=== PATIENT | female | born 1965 | race Caucasian/White ===

== ENCOUNTER 2019-01-17 18:38 | Inpatient (IN) ==
[2019-01-17] MEDS ORDERED: ATIVAN IV ONE (19:16)
[2019-01-17 19:19] LABS: ALLEN TEST YES; BE -21.5 mmoll (-3.0-3.0); BLOOD TYPE ARTERIAL; HCO3-(ACT) 8.2 mmoll (20.0-26.0); O2(CT) 13.1 mL/dL (15.0-23.0); O2HB 97.6 % (95.0-99.0); PO2(98.6) 145 mmHg (60-100); SAMPLE BLOOD; SAO2 100.2 % (95.0-100.0); THB 9.3 g/dL (11.5-17.4); pH(98.6) 7.24 (7.35-7.45)
[2019-01-17 19:22] LABS: LACTATE > 20.00 mmoll (0.44-2.22); MODALITY ROOM AIR; PCO2(98.6) 8 mmHg (35-45)
[2019-01-17] MEDS ORDERED: NARCAN IV ONE (19:26)
[2019-01-17] MEDS ORDERED: NS 1,000 ML IV ONE ×4 (19:26→20:31)
--- NOTE | 2019-01-17 19:28 | Diag Imaging Result Doc PS360 ---
EXAM: CHEST-PORTABLE - 01/17/2019 HISTORY: altered mental status TECHNIQUE: Portable chest COMPARISON: 07/12/2018 FINDINGS: Heart size is normal. The lungs appear essentially clear. There is no pleural effusion or pneumothorax identified. IMPRESSION: No evidence of acute disease. Electronically signed by Dar Mays 01/17/2019 7:25 PM
[2019-01-17 19:33] LABS: BASO# 0.03 X1000 (0.0-0.2); BASO% 0.1 % (0.0-0.8); EOS# 0.01 X1000 (0.0-0.7); HEMATOCRIT 30.9 % (37.0-47.0); HEMOGLOBIN 9.6 g/dL (12.0-16.0); IMM GRAN# 0.12 X1000 (0.0-0.04); IMM GRAN% 0.4 % (0.0-0.5); LYMPH# 2.08 X1000 (1.2-3.4); LYMPH% 6.1 % (20.5-51.1); MCH 33.7 PG (27-31); MCHC 31.1 g/dL (33-37); MCV 108.4 FL (81-99); MONO# 1.86 X1000 (0.11-0.59); MONO% 5.5 % (1.7-9.3); MPV 10.8 FL (7.4-10.4); NEUT# 29.78 X1000 (1.4-6.5); NEUT% 87.9 % (42.2-75.2); PLT 65 X1000 (130-400); RBC 2.85 XMIL (4.2-5.4); RDW 16.1 % (11.5-14.5); WBC 33.88 X1000 (4.8-10.8)
[2019-01-17 19:35] LABS: INR 3.23; PROTIME 35.2 Seconds (11.0-16.0)
[2019-01-17 19:36] LABS: PTT 44.1 Seconds (22.3-41.8)
[2019-01-17 19:47] LABS: BANDS 8 % (0-1); LYMPHS 5 % (21-51); MONO 2 % (1-9); SEGS 85 % (42-75)
[2019-01-17 19:48] LABS: ANISOCYTOSIS 1+
[2019-01-17 19:53] LABS: ALBUMIN 3.4 g/dL (3.5-5.0); CALCIUM 9.1 mg/dL (8.8-10.2); TOTAL BILIRUBIN 4.53 mg/dL (0.20-1.00); TOTAL PROTEIN 6.7 g/dL (6.3-8.3)
[2019-01-17] MEDS ORDERED: NORCURON ONE (19:53)
[2019-01-17] MEDS ORDERED: AMIDATE ONE (19:53)
[2019-01-17] MEDS ORDERED: NORCURON IV ONE (19:54)
[2019-01-17] MEDS ORDERED: AMIDATE IV ONE (19:54)
[2019-01-17] MEDS ORDERED: STERILE WATER INJ. ONE (19:54)
[2019-01-17 20:06] LABS: URINE SOURCE CATH
[2019-01-17 20:08] LABS: CK-MB 44.97 ng/mL (0.0-5.0)
[2019-01-17 20:31] LABS: UR AMPHETAMINES QUAL NONE DETECTED (NONE DETECT); UR BARBITUATES QUAL NONE DETECTED (NONE DETECT); UR BENZODIAZEPIN QUAL NONE DETECTED (NONE DETECT); UR CANNABINOIDS QUAL NONE DETECTED (NONE DETECT); UR COCAINE QUAL NONE DETECTED (NONE DETECT); UR METHADONE QUAL NONE DETECTED (NONE DETECT); UR OPIATES QUAL PRESUMPTIVE POSITIVE (NONE DETECT); UR OXYCODONE QUAL NONE DETECTED (NONE DETECT); UR PCP QUAL NONE DETECTED (NONE DETECT)
[2019-01-17 20:33] LABS: BILIRUBIN URINE NEGATIVE (NEGATIVE); BLOOD URINE TRACE (NEGATIVE); COLOR YELLOW; GLUCOSE URINE NEGATIVE (NEGATIVE); KETONE URINE 40 mg/dL (NEGATIVE); LEUKOCYTES URINE LARGE (NEGATIVE); NITRITE URINE NEGATIVE (NEGATIVE); PH URINE 5.5; PROTEIN URINE TRACE mg/dL (NEGATIVE); SP GRAVITY URINE 1.007; TURBIDITY URINE HAZY (CLEAR); UROBILINOGEN URINE NORMAL (NORMAL)
[2019-01-17] MEDS ORDERED: POTASSIUM CHLORIDE 10 MEQ/SWI 10 MEQ/100 ML IVPB IV ONE (20:34)
[2019-01-17 20:35] LABS: UR EPITHELIAL CELLS <10 /HPF (<10); URINE BACTERIA 4+ /HPF; URINE RBC <10 /HPF (<10); URINE WBC TNTC /HPF (<10)
[2019-01-17] MEDS: FENTANYL 1,000 MICROGM in NS 80 ML IV SCH (20:38)
[2019-01-17 20:46] LABS: ACETAMINOPHEN < 1.2 ug/mL (10-30); SALICYLATES < 3.00 mg/dL (3-10)
[2019-01-17] MEDS ORDERED: SODIUM BICARBONATE 8.4% 100 MEQ in D5W 1,000 ML IV SCH (21:00)
[2019-01-17] MEDS ORDERED: SODIUM BICARBONATE 8.4% 50 MEQ in D5W 1,000 ML IV SCH (21:00)
--- NOTE | 2019-01-17 21:01 | Diag Imaging Result Doc PS360 ---
EXAM: CHEST-PORTABLE - 01/17/2019 HISTORY: Post intubation TECHNIQUE: Portable AP spine chest COMPARISON: Prior exam of 01/17/2019 FINDINGS: There has been interval insertion of an endotracheal tube, with its tip 3.8 cm above the franchesca. There has been interval insertion of a nasogastric tube, its tip at expected location of the proximal stomach near the gastroesophageal junction. There is apparent infiltrate at the superior lateral left upper lobe, although this could be exaggerated by scapular overlap. There are no other interval changes identified. IMPRESSION: Satisfactory position of endotracheal tube, with its tip located 3.8 cm above the franchesca. Tip of nasogastric tube in proximal stomach. The nasogastric tube probably should be advanced several centimeters for more optimal positioning. Apparent infiltrate at superior lateral left upper lobe. Electronically signed by Dar Mays 01/17/2019 8:58 PM
[2019-01-17] MEDS ORDERED: VANCOMYCIN 1 GM/NS 1 GM/250 ML IVPB IV ONE (21:07)
[2019-01-17 21:28] LABS: ALLEN TEST YES; BE -23.3 mmoll (-3.0-3.0); BLOOD TYPE ARTERIAL; HCO3-(ACT) 6.8 mmoll (20.0-26.0); METHB 1.2 % (0.0-1.5); O2(CT) 10.9 mL/dL (15.0-23.0); O2HB 98.2 % (95.0-99.0); PCO2(98.6) 22 mmHg (35-45); PO2(98.6) 289 mmHg (60-100); SAMPLE BLOOD; SRATE 12 BPM; THB 7.3 g/dL (11.5-17.4); TVOL 550 mL
[2019-01-17 21:31] LABS: LACTATE > 20.00 mmoll (0.44-2.22); MODALITY VENTILATOR; pH(98.6) 7.02 (7.35-7.45)
[2019-01-17] MEDS ORDERED: SODIUM BICARBONATE 8.4% IV PUSH ONE (21:35)
--- NOTE | 2019-01-17 21:54 | Diag Imaging Result Doc PS360 ---
EXAM: CT HEAD W/O CONTRAST - 01/17/2019 HISTORY: AMS TECHNIQUE: CT head without contrast COMPARISON: 07/12/2018 FINDINGS: There is no evidence of intracranial hemorrhage, mass effect, midline shift, or hydrocephalus. There is no evidence of infarct, although acute infarcts may not be immediately visible. There is no evidence of skull fracture. There is mild paranasal sinus disease noted, including opacification of the left compartment sphenoid sinus. IMPRESSION: No visible acute intracranial abnormality. No hemorrhage or mass effect. There is mild paranasal sinus disease noted. This exam was performed using automated exposure control, adjustment of mA or kV according to patient size, and/or use of iterative reconstruction technique. Electronically signed by Dar Mays 01/17/2019 9:51 PM
--- NOTE | 2019-01-17 22:07 | Diag Imaging Result Doc PS360 ---
EXAM: CT ABDOMEN/PELVIS W/O CONTRAST - 01/17/2019 HISTORY: lactic acidosis TECHNIQUE: CT abdomen/pelvis without contrast. No contrast administered per request of the referring provider. COMPARISON: 12/01/2012 CT abdomen/pelvis with contrast FINDINGS: There is some limitation of detail due to the lack of administered contrast. The liver is is relatively small, has lobulated contours, and has heterogeneous attenuation diffusely. These findings have developed since the previous exam and are suspicious for chronic hepatocellular disease/cirrhosis. The spleen is normal size. There is no pancreatic mass or inflammation identified. The gallbladder is mildly distended. There are no calcified gallstones or pericholecystic inflammation identified. There is no renal stone or hydronephrosis identified. There are some mildly prominent retroperitoneal lymph nodes. There is a nasogastric tube with its tip in the proximal stomach. The stomach is moderately distended with fluid, and there is possibly thickening of the gastric mcmullen. There is no evidence of small bowel obstruction. There is some haziness of the mesentery, and there is possibly some mild small bowel wall thickening, which may relate to enteritis. There is some dense material in the colon lumen which may represent oral contrast or some sort of medication residue. There is wall thickening along portions of colon which is suspicious for colitis. The rectum is mildly distended with debris. There is no pneumatosis identified. There is no abscess identified. There is no free air or substantial free fluid identified. IMPRESSION: The stomach is moderately distended with fluid, and there is possible thickening of the gastric mcmullen. This is suspicious for gastritis. Apparent relatively generalized enterocolitis. Possible rectal fecal impaction. No evidence of abscess. No free air. Apparent chronic hepatocellular disease/cirrhosis, which has developed since the prior exam. Mildly prominent retroperitoneal lymph nodes. This exam was performed using automated exposure control, adjustment of mA or kV according to patient size, and/or use of iterative reconstruction technique. Electronically signed by Dar Mays 01/17/2019 10:05 PM
--- NOTE | 2019-01-17 22:08 | NEPHROLOGY CONSULTATION ---
DATE: 01/17/2019 REASON FOR CONSULTATION: Lactic acidosis. HISTORY OF PRESENT ILLNESS: Ms. Marcial is a 53-year-old, white female who was brought to the emergency room by EMS. The report is that she was found down and unresponsive. There is no family present. I contacted the emergency contact, named Michelle Marcial, but she states that she has had no contact with the patient stating that she has been "cut off." She does state the patient has an alcohol and drug problem. Her initial evaluation found her tachycardic with a blood pressure 108/59, and tachypnea, Kussmaul breathing. She was unresponsive. She was treated with IV fluids, intubation, etc. Her laboratory data noted markedly elevated serum lactic acid level with other findings including elevated transaminases. Creatinine of 2, potassium of 2, white blood cell count of 34,000 and thrombocytopenia. I was contacted with concern for possible ingestion and possible need for hemodialysis. PAST MEDICAL HISTORY: Unknown. HOME MEDICATIONS, SOCIAL, FAMILY: Otherwise unknown. ALLERGIES: She does have allergies listed in the chart of codeine, etodolac and naproxen. PHYSICAL EXAMINATION: Vital Signs: Blood pressure 94/68, heart rate 92, O2 saturation 100%. General: She is an ill-appearing woman, sedated, unresponsive. Skin: Pale and dry with mottling on the knees and faint mottling on the distal extremities. Skin is otherwise no bruising. HEENT: Conjunctivae are pink. Pupils are dilated but reactive. Oropharynx is dry. Poor dentition. Neck: Supple. Neck vein distention is not appreciated. Heart: PMI is hyperdynamic. Auscultation demonstrates a regular rhythm with no gallops or murmurs. Lungs: Have equal breath sounds. No crackles or wheezes. Abdomen: Soft, mildly protuberant, nontender. The aorta is somewhat pulsatile, but I do not believe it is enlarged. No bruits. Bowel sounds are not appreciated. No organomegaly is palpable. Extremities: Have no edema, clubbing, or cyanosis. Proximal pulses are palpable. Radial pulses thready and dorsalis pedis and posterior tibial pulses are not palpable. Neurologic: Grossly nonfocal. IMPRESSION: Lactic acidosis with respiratory compensation. Her pH is falling. PLAN: We will give 2 amps of sodium bicarbonate and again a bicarbonate drip. Blood cultures, Zosyn, vancomycin. CT of the abdomen. Her osmolal gap is modestly elevated at 30, but given her marked lactic acidosis, this is an adequate explanation for this finding without invoking other ingestions. Urine output is actually good despite her hypotension. Continue volume resuscitation and re-evaluate her labs serially. We will discuss with the primary team. cc: Lefty Ceballos MD
--- NOTE | 2019-01-17 22:43 | PROVIDER DOCUMENTATION ---
This chart was entered by Unruly vIerson Scribe, acting as scribe for Ulices Lehman MD. HPI-General Adult - General Chief Complaint: Altered Mental Status Stated Complaint: AMS Time Seen by Provider: 01/17/19 19:08 Source: EMS Unable to obtain history due to:: altered Allergies/Adverse Reactions: Patient Allergies Allergy/AdvReac Type Severity Reaction Status Date / Time codeine Allergy NAUSEA/VOMI Verified 03/20/18 07:49 TING etodolac [From Lodine] Allergy NAUSEA Verified 03/20/18 07:49 naproxen [From Naprosyn] Allergy NAUSEA Verified 03/20/18 07:49 Home Medications: Home Medication List Medication Instructions Recorded Confirmed Last Taken Type Tizanidine [Zanaflex] 4 mg PO 4XDAY 09/01/14 07/12/18 07/11/18 History 4mg Hydrocodone/Acetaminophen [[place] 1 tab PO Q4-6H PRN PRN 03/12/15 07/12/18 History 10-325 Tablet] 1 Diphenhydramine HCl [Benadryl 25 mg PO DAILY PRN PRN 03/28/18 07/12/18 07/12/18 History Allergy] 25mg Clonazepam [Klonopin] 1 mg PO BID #0 07/13/18 07/12/18 07/11/18 Rx 1mg Folic Acid 1 mg PO DAILY tablet 07/13/18 Unknown Rx Metoprolol [Lopressor] 50 mg PO BID #60 tab 07/13/18 Unknown Rx - History of Present Illness -Gen Adult Nature of Presenting Problems: Pt is a 53 y/o F brought in by EMS with AMS> EMS reports the room mate last saw pt normal 32 hours ago. EMS reports unconfirmed hx of CVA's and old records show a history of daily drinking. Review of Systems - Adult - REVIEW OF SYSTEMS - ADULT ROS:: unobtainable per condition Constitutional: denies: chills, fever Past History - Adult - PAST MEDICAL HISTORY-ADULT Review of Records: reports: Old Records Reviewed, Nursing Assessment Review, Medications Reviewed Major Childhood Illnesses: reports: denies history Cardiovascular: reports: CAD, HTN, [place] Respiratory: reports: denies history Gastrointestinal: reports: denies history Obstetrical/Gynecological: reports: denies history Genitourinary: reports: denies history Musculoskeletal: reports: other (Back and spine issues/ chronic back pain) Neurological: reports: CVA Endocrine/Immune: reports: denies history Other Conditions: reports: other (DDD) - PRIOR SURGERIES/PROCEDURES Surgical/Procedure History: reports: hysterectomy, other, back/neck - IMMUNIZATION STATUS Childhood Immunizations: UTD Flu Vaccine: See Nurse Assessment - FAMILY HISTORY Family History: reviewed, not pertinent - SOCIAL HISTORY Smoking: cigarettes Substance Use: alcohol Alcohol Use Frequency: every day Living Situation: friend Physical Exam-General - PHYSICAL EXAM-ADULT Initial Vital Signs Reviewed: Yes - CONSTITUTIONAL General Appearance: alert. negative: appears well (ill in appearance), other ( Pt is non verbal and breathing with her mouth open. She will not answer questions and tries to pull away when check pupils) - EYES Eyes: PERRL/EOMI, pink conjunctivae - HEAD, EARS, NOSE, MOUTH & THROAT HENMT: negative: moist mucous membranes (dry with dried blood.), normal ENT inspection (mouth is full of rotten teeth) - NECK Neck: full range of motion, normal inspection - RESPIRATORY Respiratory: no pleuratic chest pain, no respiratory distress, no accessory muscle use, increased rate - CARDIOVASCULAR Cardiovascular: normal peripheral pulses, tachycardia - GASTROINTESTINAL (ABDOMEN) Abdominal Exam: non tender, soft - MUSCULOSKELETAL Extremity: normal range of motion, normal inspection - SKIN Integumentary: normal color, normal turgor, warm/dry - NEUROLOGIC Neurologic: aphasia. negative: facial droop - PSYCHIATRIC Psych/Mental Status: negative: normal mood/affect, normal thought content, normal thought process, oriented x 3 Progress - PLAN OF CARE/RESULTS Progress/Plan/Lab Results: Vital Signs - 8 hr 01/17/19 18:42 Temperature 97.5 F L Pulse Rate 104 H Respiratory Rate 30 H Blood Pressure 108/59 O2 Sat by Pulse Oximetry 100 Laboratory Results - last 24 hr 01/17/19 18:48 POC Glucose 118 H Orders Category Date Time Status Cardiac Monitoring DIRECTED Care 01/17/19 19:03 Active Finger Stick Blood Sugar (ED) DIRECTED Care 01/17/19 19:03 Active [place] Cath Insertion ORDERED Care 01/17/19 19:16 Active Saline Loc NOW Care 01/17/19 19:03 Active CHEST-PORTABLE [RAD] Stat Exams 01/17/19 19:[address] HEAD W/O CONTRAST [CT] Stat Exams 01/17/19 19:12 Ordered ABG [RESP] Routine Lab 01/17/19 19:03 Ordered CBC WITH ELECTRONIC DIFF [HEME] Stat Lab 01/17/19 19:09 Ordered CK PROFILE [SP CHEM] Stat Lab 01/17/19 19:09 Ordered COMPREHENSIVE METABOLIC PANEL [CHEM] Stat Lab 01/17/19 19:09 Ordered LACTATE, PLASMA [CHEM] Stat Lab 01/17/19 19:09 Ordered PROTIME WITH INR [COAG] Stat Lab 01/17/19 19:09 Ordered PTT [COAG] Stat Lab 01/17/19 19:09 Ordered TROPONIN T Stat Lab 01/17/19 19:09 Ordered Lorazepam [Ativan] Med 01/17/19 19:16 Discontinued 2 mg IV NOW ONE Altered Mental Status Stat Oth 01/17/19 19:02 Ordered EKG [EKG] Stat Ther 01/17/19 19:[address] Lehman consults hospitalist Dr Berger as an game preserve manager to help with the plan of care and possible causes of elevated labs especially lactic acid > 20. Did alert him that she will need to come in. Result Diagrams: 01/17/19 18:50 01/17/19 18:50 - REASSESSMENT Reassessment #1 Time Reassessed: 19:40 Status: worsening (Pt getting more restless and becoming more unresponsive) Reassessment #2 Time Reassessed: 21:41 Status: unchanged (Pt remians hypotenisve after 3 Liters of fluid. Central line needed for pressure support) - XRAY 1 XRAY Study: Chest Impression: Normal (Tube placement is good), See EMR Report - CONSULTS/PCP/HOSPITALIST Notification #1 *Consult/PCP/Hospitalist*: Seat Cover Maker- Dr Rothman Time Discussed: 20:22 Reason/Comments: Review of HPI and plan of care for possible dialysis Consult Disposition: other #2 Consult: Hospitalist- Dr Berger Time Discussed: 22:23 Reason/Comments: admission Consult Disposition: Admit (accepts) Procedures - CENTRAL LINE Consent Form Signed?: No (Emergent, pt intubated) Time-Out Verification Completed?: Yes Central Line Lumen: triple Central Line Procedure Prep: Hand Hygeine Performed, Kit Utilized, Chloraprep, Sterile Body Drape Placed Patient Position (To prevent Air Embolism): Trendelenburg (SC/IJ) Central Line Position: internal jugular (R) Ultrasound Guided?: Yes Hat, mask, sterile gown, & sterile gloves worn by physician?: Yes Site scrubbed vigorously for 30 seconds? (Groin: 2 min): Yes Post Procedure: Sutured in place, Sterile field maintained, BioPatch placed, Sterile dressing applied, Blood aspirated from each lumen, Placement verfied by XRAY Complications: none - INTUBATION Time of Intubation: 19:58 Intubation Method: orotracheal Equipment: ETT Tube Size (cm): 7.5 Pretreated with 100% Oxygen?: Yes Breath Sounds after Intubation: equal ETT Primary Tube Confirmation: Capnometry CO2 Change, Chest Rise and Fall Intubation Complications: no complications Vent Settings: See Respiratory Therapy Notes - PROCEDURAL SEDATION Consent Form Signed?: No (Pt altered and emgergent) Prior complications to general anesthesia?: No Airway Physical Exam: normal anatomy Plan explained to:: other (Emergent intubation) Sedation: etomidate, other (Vec) Complications during/after procedure?: none Departure - Departure Date of Disposition Decision: 01/17/19 Time of Disposition Decision: 22:42 DIAGNOSIS: Lactic acid acidosis Altered mental status Qualifiers: Altered mental status type: disorientation Qualified Code(s): R41.0 - Disorientation, unspecified Disposition: ADMITTED INPATIENT 09 Certified Medical Emergency: Emergent Condition: Critical Referrals and Follow-Ups: None,PCP [NON-STAFF PROVIDER] - - Critical Care Note This patient required my direct & personal management of CC.: Yes Attestation - Physician/ XAVIER Attestation Patient care was provided by Advanced Practice Provider:: No The physician spent face to face time with patient:: Yes Advanced Practice Provider documentation review:: Supervising physician onsite and consulted in the evaluation and care of this patient. The physician did have a face to face encounter with the patient. This chart was documented by the indicated scribe, (Unruly Iverson Scribe) and accurately reflects the services I performed and decisions made by me, Ulices Lehman MD, as attested by the provider's signature.
[2019-01-17] MEDS: SODIUM BICARBONATE 8.4% 100 MEQ in D5W 1,000 ML IV SCH (22:48)
[2019-01-17] MEDS ORDERED: POTASSIUM CHLORIDE 40 MEQ/SWI 40 MEQ/100 ML IVPB IV ONE (23:01)
[2019-01-17] MEDS ORDERED: ZOFRAN IV PRN (23:02)
[2019-01-17] MEDS ORDERED: VITAMIN K 10 MG in NS 50 ML IV ONE (23:08)
[2019-01-17] MEDS: LEVOPHED 8 MG in D5 1/2 NS 250 ML IV SCH (23:45)
[2019-01-17] MEDS: POTASSIUM CHLORIDE 20 MEQ/SWI 20 MEQ/100 ML IVPB IV SCH (23:45)
--- NOTE | 2019-01-18 00:54 | HISTORY AND PHYSICAL ---
PRIMARY CARE PROVIDER: Patel Mensah. CHIEF COMPLAINT: Unresponsive. HISTORY OF PRESENT ILLNESS: Ms. Marcial is a 53-year-old female who was brought into the emergency room by EMS. She was reportedly found down unresponsive. On arrival to the emergency room, apparently she was close to obtunded but still did move some per the ER staff. There was no family present. She has a past history of alcohol and drug problems from previous charting. Also has a history of hepatitis C, CVA, coronary artery disease, asthma, seasonal allergies, and allergic rhinitis and hypertension. Initial laboratory data was obtained. She was found to be in pretty severe lactic acidosis. She was started in the emergency room on a bicarbonate drip and Dr. Ceballos was consulted. The patient was in respiratory failure and intubated. Her toxicology screen was presumptively positive for opiates. All initial CT scan such as of her head did not show any bleed. Abdomen and pelvis showed possible gastritis. She was also noted to have a urinary tract infection and a white blood cell count of 33.88. She will be admitted and placed in the ICU for further evaluation and treatment. PAST MEDICAL HISTORY: See HPI. PREVIOUS SURGICAL HISTORY: Hysterectomy, exploratory laparotomy for lysis of adhesions, ORIF of the right elbow. FAMILY HISTORY: Could not be obtained. SOCIAL HISTORY: Could not be obtained but from past medical history smokes a pack a day, drinks a 6-pack a day and a pint of liquor every so often. No illicit drugs. I believe she lives with a friend. ALLERGIES: Codeine, and naproxen. HOME MEDICATIONS: A list of home medications has not been reconciled. An order was placed for Nursing to reconcile home medications. REVIEW OF SYSTEMS: This could not be obtained. PHYSICAL EXAMINATION: VITAL SIGNS: Temperature 97.5, pulse 81, blood pressure 82//56, oxygen saturation 98% on 100% mechanical ventilation. GENERAL: Unfortunate 53-year-old female intubated, unresponsive, chronically ill appearing lying in the ER stretcher, does not respond to any stimulants. HEENT: Head is atraumatic, normocephalic. Pupils are dilated right slightly larger than left. They are reactive. Extraocular eye movement could not be tested. Oral mucosa is dry. Poor dentition noted. NECK: Supple. No JVD. No thyromegaly. Trachea is midline. CARDIAC: S1, S2 appreciated. No murmurs, gallops, rubs. LUNGS: Mechanically ventilated. Clear to auscultation. No rhonchi, wheezes, rales. ABDOMEN: Protuberant, soft, nondistended. Bowel sounds present all 4 quadrants , hypoactive, almost unappreciable. No organomegaly. EXTREMITIES: No clubbing, cyanosis, or edema. Cool to touch. One-plus pedal pulses. Radial pulses are thready. NEUROLOGICAL: Intubated and sedated. Cannot be examined. DIAGNOSTIC DATA: A CT of the abdomen and pelvis was suspicious for gastritis, generalized enterocolitis, possible fecal impaction, cirrhosis. CT of the head: No acute intracranial process. Chest x-ray: Apparent infiltrate at superolateral left upper lobe, endotracheal tube in satisfactory position. LABORATORY DATA: WBC 33.88. Hemoglobin 9.6. Hematocrit 30.9. Platelet count 65. INR 3.23. ABG: pH 7.02, pCO2 of 22, bicarbonate 6.8, lactate greater than 20. Sodium 144. Potassium 2. Chloride 89. Carbon dioxide 5. BUN 38. Creatinine 2. Glucose 94. Total bilirubin 4.53. CK 1128. Troponin 0.113. Plasma lactate 24.3. Urine: Leukocyte esterase positive, too numerous to count WBCs, 4-plus bacteria, trace blood, no RBCs. Toxicology screen presumptively positive for opiates. ASSESSMENT AND PLAN: 1. Profound lactic acidosis. She was started on a bicarbonate drip with 2 amps of bicarbonate push. Dr. Ceballos was consulted. She was started on Zosyn and vancomycin. Continue volume resuscitation. She was bolused in the emergency room. She will be placed in ICU. 2. Respiratory failure. Patient was intubated. We will consult Dr. Garcia for ventilator management which she is sedated with fentanyl. We will continue this in the ICU. 3. Hypokalemia. We will give 40 mEq of potassium. She was given 10 mEq in the ER. However, her potassium was 2. We will recheck. 4. Hypotension. Patient is acidotic. We will try to treat the underlying lactic acidosis. We will start Levophed. 5. Coagulopathy. Patient has cirrhosis of the liver. Her INR is elevated. We will give vitamin K 10 mg as well as 2 units of FFP. 6. Thrombocytopenia. Aware. We will monitor. 7. Anemia of chronic disease. Aware. We will monitor. Patient's prognosis appears to be poor at this point. We will continue to monitor in the ICU. Hopeful that the lactic acidosis will resolve. CRITICAL CARE TIME: 30 minutes. Further recommendations per patient clinical course. Dictated by MACIEL Medrano for Andi Matthew MD cc: MACIEL Medrano MD Patient was seen and evaluated by me. Admitted with AMS with severe lactic acidosis. Noted to have a bicarb level of 5 and started on bicarbonate infusion. Intubated and noted to be in DIC. White count elevated. Regarding DIC-FFP/ cryoprecipitate given and hematology consulted. Placed on antibiotics for possible sepsis/markedly raised white count.ID consulted. Dr. Vipul OLIVER
[2019-01-18] MEDS: SODIUM CHLORIDE 0.9% INJ SCH ×3 (02:13→23:32)
[2019-01-18] MEDS: PROTONIX IV SCH ×3 (02:13→23:32)
[2019-01-18] MEDS: ZOSYN 2.25 GM in NS 50 ML IV SCH ×4 (02:14→22:14)
[2019-01-18] MEDS: POTASSIUM CHLORIDE 20 MEQ/SWI 20 MEQ/100 ML IVPB IV SCH (02:15)
[2019-01-18] MEDS ORDERED: VANCOMYCIN IV PER PHARMACY MISC SCH (03:30)
[2019-01-18 04:29] LABS: ALLEN TEST YES; BE -17.4 mmoll (-3.0-3.0); BLOOD TYPE ARTERIAL; HCO3-(ACT) 11.4 mmoll (20.0-26.0); METHB 1.2 % (0.0-1.5); O2(CT) 11.9 mL/dL (15.0-23.0); O2HB 97.4 % (95.0-99.0); PCO2(98.6) 24 mmHg (35-45); PO2(98.6) 164 mmHg (60-100); SAMPLE BLOOD; SAO2 100.3 % (95.0-100.0); SRATE 12 BPM; THB 8.4 g/dL (11.5-17.4); TVOL 550 mL
[2019-01-18 04:31] LABS: MODALITY VENTILATOR; pH(98.6) 7.19 (7.35-7.45)
[2019-01-18 04:49] LABS: BASO# 0.03 X1000 (0.0-0.2); BASO% 0.1 % (0.0-0.8); EOS# 0.02 X1000 (0.0-0.7); EOS% 0.1 % (0.0-10.0); HEMATOCRIT 26.9 % (37.0-47.0); HEMOGLOBIN 8.2 g/dL (12.0-16.0); IMM GRAN# 0.14 X1000 (0.0-0.04); IMM GRAN% 0.4 % (0.0-0.5); LYMPH# 2.14 X1000 (1.2-3.4); LYMPH% 6.3 % (20.5-51.1); MCH 33.5 PG (27-31); MCHC 30.5 g/dL (33-37); MCV 109.8 FL (81-99); MONO# 0.91 X1000 (0.11-0.59); MONO% 2.7 % (1.7-9.3); MPV 10.4 FL (7.4-10.4); NEUT# 30.67 X1000 (1.4-6.5); NEUT% 90.4 % (42.2-75.2); PLT 65 X1000 (130-400); RBC 2.45 XMIL (4.2-5.4); RDW 16.1 % (11.5-14.5); WBC 33.91 X1000 (4.8-10.8)
[2019-01-18 05:16] LABS: CALCIUM 7.3 mg/dL (8.8-10.2); CREATININE 1.8 mg/dL (0.5-0.9); POTASSIUM 2.8 mmol/L (3.5-5.1)
[2019-01-18] MEDS: NS IV ONE ×3 (05:34→13:54)
[2019-01-18] MEDS: VANCOMYCIN IV ONE ×3 (05:34→13:54)
[2019-01-18 05:51] LABS: CK INDEX 4.2 (0.0-2.5); CK-MB 38.45 ng/mL (0.0-5.0)
[2019-01-18 06:17] LABS: INR 4.03
[2019-01-18 06:25] LABS: LYMPHS 6 % (21-51); MONO 1 % (1-9); SEGS 93 % (42-75)
--- NOTE | 2019-01-18 06:38 | Diag Imaging Result Doc PS360 ---
CHEST-PORTABLE - 01/18/2019 INDICATION: NG tube placement COMPARISON: 01/17/2019 FINDINGS: There is a new right central line that is fairly deep, the tip is down in the right atrium. Stable endotracheal tube and nasogastric tube in good position. There is an esophageal temperature probe with the tip at the gastroesophageal junction. There is some hazy left upper lobe infiltrate stable from prior. No new infiltrates. Heart size is normal. IMPRESSION: 1. Right central line is fairly deep, the tip is down in the right atrium. 2. Hazy left upper lobe infiltrate stable from prior. Electronically signed by Diego Centeno 01/18/2019 6:35 AM
[2019-01-18] MEDS ORDERED: NS 500 ML ONE (07:28)
--- NOTE | 2019-01-18 07:40 | EKG Report ---
Test Performed on : 01/18/2019 06:50:41 AM Test Reason : chest pain Blood Pressure : / mmHG Vent. Rate : 095 BPM Atrial Rate : 095 BPM P-R Int : 126 ms QRS Dur : 088 ms QT Int : 390 ms P-R-T Axes : 081 026 131 degrees QTc Int : 490 ms Age and gender specific ECG analysis Normal sinus rhythm. Possible Left atrial enlargement ST elevation, consider inferior injury or acute infarct Prolonged QT ACUTE NE / STEMI Consider right ventricular involvement in acute inferior infarct Abnormal ECG When compared with ECG of 18-JAN-2019 00:13, (Unconfirmed) Non-specific change in ST segment in Inferior leads T wave inversion more evident in Lateral leads Confirmed by Dedra RAO, Michael Contreras ([id number]) on 01/18/2019 12:22:05 PM
--- NOTE | 2019-01-18 07:45 | EKG Report ---
Test Performed on : 01/18/2019 00:13:16 AM Test Reason : altered Blood Pressure : / mmHG Vent. Rate : 083 BPM Atrial Rate : 083 BPM P-R Int : 140 ms QRS Dur : 090 ms QT Int : 426 ms P-R-T Axes : 071 037 147 degrees QTc Int : 500 ms Normal sinus rhythm. Possible Left atrial enlargement ST & T wave abnormality, consider inferior ischemia ST & T wave abnormality, consider anterolateral ischemia Prolonged QT Abnormal ECG When compared with ECG of 12-JUL-2018 16:37, Significant changes have occurred Confirmed by Michael Colmenares MD ([id number]) on 01/18/2019 12:21:07 PM
[2019-01-18] MEDS: SODIUM BICARBONATE 8.4% 100 MEQ in D5W 1,000 ML IV SCH ×2 (08:51→19:48)
[2019-01-18] MEDS: NS 500 ML IV SCH ×2 (08:52→20:19)
--- NOTE | 2019-01-18 10:59 | PROGRESS NOTE ---
DATE: 01/18/2019 SUBJECTIVE: This morning, Ms. Marcial is seen in the ICU, is currently intubated, and she is on fentanyl drip as well as Levophed drip. She is not able to give any interim history, so I reviewed most of her documentation from the ER, as well as her H P and the consult notes. It is reported that Ms. Marcial was found unresponsive on the floor. Roommate might have seen her last over 30 hours prior to her being found. When she came to the emergency department yesterday per the documentation, she was not verbally responsive, but she would pull away when her pupils were being checked, and she was breathing with her mouth open. On presentation, her initial blood pressure was found to be about 108/59, but that dropped to 84/61, and continues to be hypotensive since then. At some point, it was found out that her mentation continues to decline, and she got intubated and admitted to the Emergency to the ICU. We have still not been able to get in touch with any family member. OBJECTIVE: Current vitals: Blood pressure is 88/50, MAP is 60 with pulse 100, temperature is 95.4 degrees. The patient was saturating 100% on mechanical ventilator. General: Ms. Marcial 53- year-old female. She is in bed, currently intubated. HEENT: Mucosa is dry. Anicteric. Acyanotic. Neck: Supple. Chest: Good air entry bilateral. There are some transmitted sounds from the ventilator. Cardiovascular: Regular rate and rhythm. I did not hear any murmurs or rubs. Abdomen: Soft. Bowel sounds are present. No hepatosplenomegaly. There is an old transverse surgical scar in the lower abdomen, consistent with previous possible gynecological surgery. Extremities: No pedal edema. Central nervous system : Ms. Marcial is unresponsive, even to extreme painful stimulation. There might be mild wiggling of the toes of the feet to extreme painful stimulation. Pupils are, however, equal and they are reactive, and patient does have gag reflex. LABORATORY DATA: WBC is 33.91, hemoglobin is 8.2, platelet count of 65,000. Chemistry is also reviewed. Sodium is 147, potassium is 2.8, chloride is 101, bicarbonate is 12, gap of 34, BUN is 32, creatinine is 1.8. The patient's lactate yesterday was 24.3. INTAKE AND OUTPUT: Urine output documented is 350. The patient is currently positive balance of 1314. RADIOLOGICAL DATA: A chest x-ray initial did not show any acute disease. A CT scan of the head did not show any acute intracranial pathology. A repeat chest x-ray after intubation did make mention of an infiltrate at the superior lateral left upper lobe. A CT scan of the abdomen and pelvis did show possible thickening of the gastric wall suspicious for gastritis. There is also a generalized appearance of enteral colitis, possible fecal impaction. A repeat chest x-ray this morning shows haziness in the left upper lobe which seems to be stable. MICROBIOLOGICAL DATA: So far blood culture still pending. Urinalysis did show large leukocytes and WBC, but the nitrate was negative. There is 4+ bacteria. Previous microbiology data in February 2018 did show an E coli. ASSESSMENT: 1. Unresponsiveness upon presentation. We not able to verify the circumstances around this. Her CT scan has been negative. We will get Neurology to evaluate the patient. 2. Septic shock. The patient continues to be remarkably hypotensive, hypothermic, tachycardic, severe lactic acidosis, all suggestive of possible sepsis-induced hypotension. However, we are not sure of the source. Blood cultures and urine cultures have been done. X-rays do make mention of a mild upper lobe right upper lobe infiltrates. Patient is currently on antibiotics, and we will continue. A CT scan does make mention of enterocolitis; I am not 100% sure if this is the only source of the ongoing sepsis. 3. Thrombocytopenia with elevated INR and very low fibrinogen, concerning for disseminated intravascular congestion (DIC). Oncology has been consulted, and patient has been given cryoprecipitate and FFP. 4. Severe lactic acidosis. We will continue with adequate fluid resuscitation. 5. Acute kidney injury. Nephrology has been consulted. 6. Hypokalemia. We will continue to replace. 7. Previous history of cerebrovascular accident (CVA) as well as hepatitis C and chronic hepatocellular disease. Noted. 8. Acute hypoxemic respiratory failure. The patient is currently intubated. 9. Rhabdomyolysis. We will continue with the current IV fluids. PLAN: In general, Ms. Marcial is currently intubated, on broad-spectrum antibiotics adequate, and IV hydration, being followed up by multiple subspecialties. We will try and get out to the numbers on her chart to see if we can get better history from somebody. cc: MD MELODY Tabor
[2019-01-18] MEDS: POTASSIUM CHLORIDE 60 MEQ in NS 500 ML IV SCH ×2 (11:20→18:30)
--- NOTE | 2019-01-18 11:50 | NEPHROLOGY PROGRESS NOTE ---
DATE: 01/18/2019 TIME SEEN: 0605. SUBJECTIVE: Ms. Marcial is resting quietly in bed. She is ventilator dependent with sedation with pressor support. OBJECTIVE: Her most recent vital signs: Her last temperature 92.7 degrees, blood pressure 96/59, heart rate 93, respirations are 16, she is on 30% FiO2, last recorded saturation is 98% with mechanical ventilation. Intake and output: The patient has had 1429 in with 515 out with greater than 3 L of fluid bolus added into that from ER documented. Diagnostic Studies: Sodium is 147, potassium 2.8, chloride 101, CO2 of 12, BUN 32, creatinine 1.8, glucose 193, anion gap of 34, calcium is 7.3. TSH 0.22. Plasma lactate is down to 24.3 as of last night. Elevated CPKs with last CPK of 906, troponin elevated at 0.110, MB of 38.45. White count 33.91, hemoglobin 8.2, hematocrit 26.9 with a platelet count of 65,000. ABGs: A pH 7.19, CO2 of 24, PO2 of 164, bicarbonate 11.4. Her lactate on her arterial is 20. This is on 30% FiO2. Urine from admission is positive for hematuria, proteinuria, large leukocytes, and WBCs. The patient had a chest x-ray this a.m. showing right central line stable, hazy left upper lobe infiltrate. PHYSICAL EXAMINATION: General: This is a 53-year-old female. She is resting in bed, ventilatory support with sedation and pressor support. She is in no acute distress. Unresponsive. Skin: Pale, dry. She has mottling to the knees on the lower extremities. She does have some evidence of upper extremity bruising. This is faint. HEENT: Normocephalic, atraumatic. Conjunctivae are pale pink. She has KUNAL, though dilated. Mucous membranes are dry. Oral ET tube is in place. Poor dentition present. Neck: Supple. She had negative JVD. Cardiovascular: She has regular rate and rhythm. S4 is present. Lungs: Clear to auscultation bilateral with ventilatory support. Abdomen: Large, round, soft, nontender, slightly distended. NG tube remains to low intermittent. Genitourinary: [place] catheter is in place. She has some clear yellow urine noted in the tubing. Extremities: No edema present. Hands are slightly swollen up to the elbow. More dependent swelling present. Diminished distal pulses. Neurological: As above. ASSESSMENT AND PLAN: 1. The patient has acute lactic acidosis with respiratory compensation. The pH is low at 7.19. She continues on a sodium bicarbonate drip. More than likely, this is secondary to her sepsis. The patient is currently on vancomycin x1 dose with a vancomycin trough level of 21. Zosyn is renally dosed. The patient did have a CT of the abdomen in the evening. Patient's last anion gap is 34; this is greater than yesterday of 30. We will continue with ventilatory support. Continue on sodium bicarbonate. 2. Fluid volume. The patient has been resuscitated per sepsis protocol. At this time, her CVP is 14. She has adequate urine out documented. 3. Electrolytes and acid-base balance. The patient's potassium is low at 2.8. The patient is currently receiving a potassium bolus per IV piggyback. I would like to thank you for allowing us to follow with this patient. Dictated by MACIEL Gant for Lefty Ceballos MD Face to face encounter, data reviewed, discussed with Fouzia Melissa on 01/18/19. I agree with the above assessment and plan of care. cc: MACIEL Gant MD [facility]
[2019-01-18 12:21] LABS: ALLEN TEST NO; BE -8.8 mmoll (-3.0-3.0); BLOOD TYPE ARTERIAL; HCO3-(ACT) 18.1 mmoll (20.0-26.0); METHB 0.4 % (0.0-1.5); O2(CT) 9.5 mL/dL (15.0-23.0); PCO2(98.6) 27 mmHg (35-45); PO2(98.6) 103 mmHg (60-100); SAMPLE BLOOD; SAO2 100.2 % (95.0-100.0); SRATE 12 BPM; THB 6.7 g/dL (11.5-17.4); TVOL 550 mL; pH(98.6) 7.37 (7.35-7.45)
[2019-01-18 12:23] LABS: MODALITY VENTILATOR
[2019-01-18 12:25] LABS: ALBUMIN 2.8 g/dL (3.5-5.0); CALCIUM 7.8 mg/dL (8.8-10.2); CREATININE 2.1 mg/dL (0.5-0.9); PHOSPHORUS 1.7 mg/dL (2.7-4.5)
--- NOTE | 2019-01-18 12:41 | INFECTIOUS DISEASE CONSULT REP ---
DATE: 01/18/2019 CONCLUSION: The patient appears to have two foci of infection. One would be a left upper lobe pneumonia and the other, based on the urinalysis, would be a urinary tract infection. On CAT scan, gastritis and enteral colitis were seen, which also could be a potential source of sepsis, although for now, I do not think it is. RECOMMENDATIONS: I agree with broad-spectrum coverage with vancomycin and Zosyn. DISCUSSION: The patient is intubated and sedated and, thus, unable to give a history. No family member is present. The information I did obtain on the patient was from the computer. The patient was found down, unresponsive. She came through the emergency room and has been put in the intensive care unit. She was found to have severe lactic acidosis. She was intubated. Her studies thus far show a CBC with a white count of 33,910, hemoglobin 8.2, and platelet count 65,000. Blood gases show a pH of 7.19, a PO2 of 164, and a pCO2 at 24. The creatinine is 1.8. GFR is 29. Chest x-ray shows a left upper lobe infiltrate. Urinalysis shows white cells and bacteria. The patient's CK is 906. The patient's liver function studies are fairly normal. However, the bilirubin is 4.53. Blood cultures are pending. A CT scan of the abdomen and pelvis showed gastritis, enterocolitis, cirrhosis of the liver. The patient has a past medical history of alcohol and drug abuse. She also has had a stroke, coronary artery disease, asthma, seasonal allergies, hypertension, and allergic rhinitis. INFECTIOUS DISEASE HISTORY: Positive for hepatitis C. PAST SURGICAL HISTORY: Positive for hysterectomy, exploratory laparotomy for lysis of adhesions. The patient has had open reduction and internal fixation of the right elbow. FAMILY HISTORY: Could not be obtained. SOCIAL HISTORY: The patient smokes cigarettes and drinks alcoholic beverages but does not do any illicit drugs. The patient lives with a friend. ALLERGIES: The patient's drug allergies are codeine and naproxen. HOME MEDICATIONS: Include Klonopin, Benadryl, folic acid, hydrocodone, Lopressor, and Zanaflex. PHYSICAL EXAMINATION: Vital Signs: Temperature is 95.4 degrees, pulse 99, respirations 15, blood pressure 88/50. The patient is 5 feet 4 inches tall and weighs 128 pounds. General: This is an ill-appearing, middle-aged female. She is intubated and sedated. Head, Eyes, Ears, Nose, and Throat: The patient has an orotracheal tube in place. There is no drainage from the nose or ears. Neck: No stiffness, no meningismus. Cardiovascular: Heart rate is regular. Thorax: Increased AP diameter of the chest. Lungs: There were scattered rhonchi bilaterally. Abdomen: Soft and did not appear to be tender. Neurologic: The patient is sedated. She did not respond to verbal stimuli. There was no tremor. Integument: No rash noted. Thank you for the consult. cc: Calvin Hall MD
[2019-01-18 12:50] LABS: CK INDEX 4.3 (0.0-2.5); CK-MB 26.61 ng/mL (0.0-5.0)
[2019-01-18] MEDS: FENTANYL 1,000 MICROGM in NS 80 ML IV SCH ×2 (13:55→23:32)
--- NOTE | 2019-01-18 15:07 | CONSULTATION ---
DATE OF CONSULTATION: 01/18/2019 HISTORY OF PRESENT ILLNESS: Ms. Marcial is 53 years old and my history is limited to what has been recorded in the hospital chart. By report, she was found poorly responsive by roommate and brought to the hospital yesterday. She has continued poorly responsive here. There is reported to be history of "stroke" with possible old left hemiparesis. She has evidence of sepsis requiring aggressive management here. The admission note indicates past history of alcohol and drug problems. Lab showed WBC 34,000, moderate anemia, PT 35.2 seconds with INR 3.23, evidence of renal failure and lactic acidosis with elevated osmolality gap. Initial phosphorus 6.4 and later 1.7. Initial magnesium 3.2 and later 2.6. Liver enzymes are elevated. CK was 1128 and then 625. Urine drug screen was positive for opiates, negative for benzodiazepines, negative for others. The home medication list may not be accurate, but includes clonazepam and hydrocodone. On exam, Ms. Marcial is supine, intubated, motionless. With moderate noxious stimulation, she demonstrated some withdrawal of each limb. She withdrew her feet briskly. I could not see definite tonal asymmetry in the limbs. Facial motility is a little bit diminished, but symmetric. Lateral eye movements are present with passive head turning. Pupils react slightly to bright light. Corneal reflex is sluggish, but present bilaterally. Neck is supple. IMPRESSION: 1. Global encephalopathy, uncertain etiology. This is likely toxic/metabolic. If she was taking clonazepam and presented with no benzodiazepine in the urine, benzodiazepine withdrawal and possible benzodiazepine withdrawal seizure could be considered. Clinically, she does not appear to be having seizures, but subclinical seizure is not excluded. I will order electroencephalogram for that question. Alternatively, she may have a substance intoxication syndrome rather than withdrawal. In that case, she should improve and time will tell. She has sufficient metabolic problems to explain at least some encephalopathy, and if there is baseline cognitive impairment, she might have a more pronounced clinical encephalopathy with current metabolic state. 2. Reported history of stroke, uncertain details. I do not find definite focal deficit on exam now. The CT scan does not show definite discrete old ischemic infarction. Old stroke might predispose her to seizure disorder. 3. Sepsis. If her encephalopathy does not improve, we might need to consider checking cerebrospinal fluid. Reluctant to do LP now with uncertain indication and elevated INR. Thanks for asking Neurology to see Ms. Marcial. cc: MD MELODY Pang III
--- NOTE | 2019-01-18 16:23 | CARDIOLOGY CONSULTATION ---
DATE: 01/18/2019 CHIEF COMPLAINT: On presentation, patient found unresponsive. HISTORY OF PRESENT ILLNESS: Ms. Marcial is a 53-year-old, white female, brought in the emergency room on the twenty-first. Apparently she was found down. Patient is currently intubated and not able to provide any history. No family apparently was present around that time. The patient had a cardiac catheterization in March of 2018 with a severe right coronary lesion done in the setting of a non-ST elevation ID. She subsequent had a PCI of that right coronary during that hospitalization. Currently, the patient is on pressors. She is intubated; again, not responsive. PAST MEDICAL HISTORY: 1. Coronary disease with cardiac catheterization in March of 2018. 2. Apparent polysubstance abuse in the past. 3. Hepatitis C. 4. Non ST-elevation ID. 5. Hypertension. SOCIAL HISTORY: Unable to be obtained secondary to patient's current nonresponsive status. FAMILY HISTORY: Unable to be obtained. REVIEW OF SYSTEMS: Unable to be obtained. PHYSICAL EXAMINATION: Vital Signs: Patient is afebrile. She has actually been hypothermic with many temperatures down in the 92 to 93 degree range. Most recent heart rate is 99 with a blood pressure 83/50. She is on pressors. General: Generally ill-appearing white female, nonresponsive. She does move to physical stimuli. HEENT: Oropharynx is moist. Multiple areas of dried blood are noted. The ET tube is in place. Eye examination shows pink conjunctivae, white sclerae. Neck: Examination shows no obvious thyromegaly or thyroid tenderness. Cardiovascular: She sounds to be in a regular rate and rhythm. I do not hear any obvious murmurs. She has no S3. She has no obvious lower extremity edema. She has warm and well- perfused extremities. Chest: Exam sounds relatively clear. She has no increased work of breathing. Abdomen: Soft, nontender. She has no obvious organomegaly. Skin Exam: Warm and dry throughout. Neurologic: Psychiatric exam is unable to be performed adequately. She does wince to physical stimuli. PERTINENT DATA: She had an EKG performed which shows sinus rhythm, nonspecific ST-T changes somewhat diffusely. No signs of ischemic changes or injury pattern. She had an abdomen and pelvis CT demonstrating thickening of the gastric wall suggesting possible gastritis generalized enterocolitis with a possible fecal impaction, chronic hepatocellular disease/cirrhosis, mildly prominent retroperitoneal lymph nodes. Head CT with no obvious abnormalities. Mild paranasal sinus disease. Chest x-ray demonstrates a right central line, hazy left upper lobe infiltrate. Laboratory data demonstrates a white count of 33, hematocrit 26, platelet count of 65. INR is 4.0 with a low fibrinogen level. Her ABG currently shows a pH of 7.37, pCO2 27, PO2 of 103. Her lactate level was 16.5. Sodium 143, potassium is 2, BUN 32, creatinine is 2.1. Mag level 2.6, phos 1.7. She does have a troponin elevation of 0.113, which currently is 0.104. Her proBNP is elevated at 4853. TSH 0.22. ASSESSMENT: Ms. Marcial is a 53-year-old female who presents with evidence for sepsis. Urinalysis shows a severe elevation in white blood cells, significant burden of bacteria. She has a positive opiate screen. PLAN: The patient appears septic. Her troponin elevation is flat and likely secondary to supply- demand mismatch secondary to her severe sepsis. She also appears to potentially be in disseminated intravascular coagulation. She continues to have a significant lactic acidosis. Her proBNP is likely elevated secondary to sepsis and this is not indicative of heart failure. I would plan on reinitiating aspirin when safe from a DIC standpoint. We certainly would like to reinstitute metoprolol, beta blockers, and statins in the future as well considering her history of non-ST elevation ID. I will check an echocardiogram. If this is unremarkable, then I would likely not have further cardiac specific recommendations, but will recommend supportive care from an infectious standpoint. cc: Dl Laguna MD
[2019-01-18] MEDS: LEVOPHED 8 MG in D5 1/2 NS 250 ML IV SCH ×2 (17:47→23:32)
[2019-01-18] MEDS ORDERED: STERILE WATER INJ. INJ ONE (18:31)
[2019-01-18] MEDS ORDERED: CATHFLO IV ONE (18:31)
[2019-01-18 20:10] LABS: CK INDEX 3.6 (0.0-2.5); CK-MB 32.73 ng/mL (0.0-5.0)
--- NOTE | 2019-01-19 02:00 | CONSULTATION ---
DATE OF CONSULTATION: 01/18/2019 REQUESTING PROVIDER: MACIEL Medrano. REASON FOR CONSULTATION: Vent management. HISTORY OF PRESENT ILLNESS: This is a 53-year-old female with a medical history of asthma, coronary artery disease, alcohol and drug problem, hepatitis C, non ST elevation VT, hypertension, and CVA. She, by report, presented to the ER last night via EMS, with poor responsiveness. Upon arrival, she was close to being obtunded, with severe lactic acidosis, acute respiratory failure, coagulopathy with liver cirrhosis, hypokalemia, hypotension , and hypothermia. She was intubated in the ER. At the time of my examination, the patient stays intubated and sedated on fentanyl at 1 mcg/kg per hour, and there is no family at the bedside. All information is obtained from the e-chart. She apparently has been admitted twice with unresponsiveness due to drug overdose. PAST MEDICAL AND SURGICAL HISTORY: 1. Asthma. 2. Coronary artery disease, with cardiac catheterization in March 2018. 3. Alcohol and drug problem. 4. Hepatitis C. 5. Non ST-elevation VT, with a severe mid right coronary lesion in March 2018. 6. Hypertension. 7. CVA. 8. Hysterectomy. 9. ORIF of the right elbow. SOCIAL HISTORY: The patient lives with a friend. She smokes a pack per day. Drinks a 6-pack of beer, or sometimes a pint of liquor, when she can get her hands on it. No illicit drug use. FAMILY HISTORY: Unable to be obtained. ALLERGIES: Codeine, etodolac, naproxen. REVIEW OF SYSTEMS: Unable to be obtained. PHYSICAL EXAMINATION: Vital Signs: Temperature 95.5 degrees, blood pressure 94 /56, pulse 99, respiratory rate 16, oxygen saturation 96% on AC, with spontaneous rate 12, FiO2 30%, tidal volume 550, and PEEP 5.0. General: Chronically ill-appearing, intubated, unresponsive. HEENT: Atraumatic. Trachea midline. ET tube in place. Respiratory: Mechanically ventilated. Clear to auscultation. Cardiovascular: Regular rate and rhythm. Gastrointestinal: Bowel sounds normoactive in all 4 quadrants. Soft, mild, distended. Extremities: Bilateral upper extremities and bilateral lower extremities cold to touch, with cyanosis, and dorsalis pedis thready. Neurologic: Sedated and unresponsive. IMAGING DATA: Chest x-ray reveals stable hazy left upper lobe infiltrates. LAB DATA: White blood cells 33.91, hemoglobin 8.2, hematocrit 26.9, platelets 65,000. Sodium 147, potassium 2.9, chloride 101, carbon dioxide 12, BUN 32, creatinine 1.8, glucose 193. Creatine kinase 906, CK-MB 38.45. ProBNP 4853. ABG: pH 7.19, pCO2 24, PO2 164 , HCO3 11.4, base excess -17.4, oxyhemoglobin 97.4, and lactate 20. ASSESSMENT: This is a 53-year-old female with a medical history of asthma, coronary artery disease, alcohol and drug problem, hepatitis C, non ST elevation myocardial infarction, hypertension, and cerebrovascular accident. She has been admitted to the ICU with severe lactic acidosis, acute respiratory failure status post intubation, coagulopathy with liver cirrhosis, hypokalemia, hypotension, and hypothermia. 1. Acute respiratory failure. 2. Pneumonia. 3. Profound lactic acidosis. 4. Shock. 5. Urinary tract infection. PLAN: 1. Continue AC mechanical ventilator and start weaning trials when appropriate. 2. Continue fluid resuscitation and Levophed drip. 3. Continue antibiotics. 4. Continue bicarbonate drip. 5. Follow up with ABG, CBC, CMP, and chest x-ray. 6. Dr. Hall is on board. 7. Continue GI and DVT prophylaxis. Thank you for the courtesy of this consult. Dictated by MACIEL Guillermo for Bing David MD cc: MACIEL Guillermo MD [facility]
[2019-01-19 04:43] LABS: ALLEN TEST YES; BE -3.2 mmoll (-3.0-3.0); BLOOD TYPE ARTERIAL; HCO3-(ACT) 22.4 mmoll (20.0-26.0); METHB 1.1 % (0.0-1.5); O2(CT) 9.1 mL/dL (15.0-23.0); O2HB 92.5 % (95.0-99.0); PCO2(98.6) 40 mmHg (35-45); PO2(98.6) 67 mmHg (60-100); SAMPLE BLOOD; SAO2 95.5 % (95.0-100.0); SRATE 12 BPM; THB 6.9 g/dL (11.5-17.4); TVOL 550 mL; pH(98.6) 7.35 (7.35-7.45)
[2019-01-19 04:44] LABS: MODALITY VENTILATOR
[2019-01-19 05:37] LABS: BASO# 0.04 X1000 (0.0-0.2); BASO% 0.2 % (0.0-0.8); EOS% 0.5 % (0.0-10.0); HEMATOCRIT 23.8 % (37.0-47.0); HEMOGLOBIN 7.5 g/dL (12.0-16.0); IMM GRAN# 0.37 X1000 (0.0-0.04); IMM GRAN% 1.7 % (0.0-0.5); LYMPH# 2.34 X1000 (1.2-3.4); MCH 34.6 PG (27-31); MCHC 31.5 g/dL (33-37); MCV 109.7 FL (81-99); MONO# 1.32 X1000 (0.11-0.59); MONO% 6.2 % (1.7-9.3); MPV 12.2 FL (7.4-10.4); NEUT% 80.4 % (42.2-75.2); RBC 2.17 XMIL (4.2-5.4); RDW 16.5 % (11.5-14.5); WBC 21.27 X1000 (4.8-10.8)
[2019-01-19 05:38] LABS: PLT 33 X1000 (130-400)
[2019-01-19] MEDS ORDERED: MAXIPIME 1 GM in NS 50 ML IV SCH (05:45)
[2019-01-19] MEDS: ZOSYN 2.25 GM in NS 50 ML IV SCH (05:46)
[2019-01-19] MEDS: SODIUM BICARBONATE 8.4% 100 MEQ in D5W 1,000 ML IV SCH ×2 (06:03→16:44)
[2019-01-19 06:09] LABS: CREATININE 2.4 mg/dL (0.5-0.9)
[2019-01-19 06:10] LABS: POTASSIUM 2.5 mmol/L (3.5-5.1)
[2019-01-19 06:11] LABS: CALCIUM 6.9 mg/dL (8.8-10.2)
[2019-01-19] MEDS: LEVOPHED 8 MG in D5 1/2 NS 250 ML IV SCH ×3 (06:15→16:42)
[2019-01-19] MEDS: FENTANYL 1,000 MICROGM in NS 80 ML IV SCH ×3 (06:15→20:10)
--- NOTE | 2019-01-19 07:06 | Diag Imaging Result Doc PS360 ---
EXAM: CHEST-1 VIEW 01/19/2019 HISTORY: SOB TECHNIQUE: AP portable at 0459 COMMENT: There is an endotracheal tube with its tip at thoracic inlet, a right internal jugular central venous catheter with its tip in the superior vena cava and an NG tube which passes below the diaphragm. There is increasing alveolar opacity in the left lower lobe compared to 01/18/2019. IMPRESSION: Worsened pulmonary edema versus pneumonia particularly in the left lower lobe. Electronically signed by Raúl Hatfield 01/19/2019 7:03 AM
[2019-01-19 07:29] LABS: LYMPHS 10 % (21-51); NRBC 1 % (0-0); SEGS 86 % (42-75)
[2019-01-19 08:37] LABS: INR 2.86; PROTIME 32.1 Seconds (11.0-16.0)
[2019-01-19] MEDS: NS 500 ML IV SCH ×2 (08:53→20:26)
[2019-01-19] MEDS ORDERED: LR 1,000 ML IV ONE (10:11)
[2019-01-19 10:50] LABS: UR CREAT RANDOM 168.7 mg/dL (11-20)
[2019-01-19] MEDS: PROTONIX IV SCH ×2 (10:58→22:15)
--- NOTE | 2019-01-19 11:34 | PROGRESS NOTE ---
DATE: 01/19/2019 SUBJECTIVE: This morning Ms. Marcial continues to be intubated. There was no family member at the bedside at the time of the encounter. OBJECTIVE: Vital signs: Blood pressure is 83/51, pulse 108, respirations 17, temperature is 98.1. The patient is saturating about 96% on mechanical ventilator. General exam: Ms. Marcial is a 53-year-old female. She is in bed, currently intubated, synchronizing well with the ventilator. HEENT: Mucosa is pink, slightly dry. There is some crusted blood around the oral mucosa. Neck: Supple. Chest: Air entry is bilaterally reduced. There are some crackles posteriorly and transmitted sounds from the ventilator. Cardiovascular: Regular rate and rhythm. No murmurs, no rubs, no gallops. Gastrointestinal: Abdomen was soft. Bowel sounds present. There is an old transverse surgical scar in the lower abdomen consistent with previous gynecological surgery. Extremities: No pedal edema. KNOWLEDGE MANAGEMENT CONSULTANT: Patient was more responsive today. She would move her extremities spontaneously, and she tried to open the eye to stimulation. At 1 point, I think she was resistant opening the eye.. LABORATORY DATA: WBC is down to 21.27, hemoglobin is 7.5, platelet count of 33. Chemistry: Sodium is 2.5,,bicarbonate is 19, gap is 26, creatinine is 2.4. ProBNP is up to 19,235. DIAGNOSTIC STUDIES: A chest x-ray this morning shows worsening pulmonary edema versus pneumonia, particularly in the left lower lobe. MICROBIOLOGY DATA: Blood culture 1/2 was positive for gram-positive cocci; unsure if it is a contaminant or a true infection. We will have to wait for the ID and sensitivity. ASSESSMENT: 1. Septic shock complicated with altered mental status, persistent hypotension and respiratory failure. So far, blood culture is showing 1/2 gram-positive cocci. Patient is on cefepime and vancomycin. We will continue with medications and wait for identification and sensitivity. 2. Severe and worsening thrombocytopenia with elevated INR and low fibrinogen, all consistent with disseminated intravascular coagulation.. The patient was given fresh frozen plasma and cryoprecipitate. We will continue monitoring the numbers and transfuse appropriately. 3. Severe lactic acidosis secondary to septic shock. We will continue adequate hydration. 4. Acute kidney injury. Urine output continues to be extremely marginal ; 105 was documented yesterday. The patient's creatinine slightly worsened this morning. Nephrology is on board. 5. Acute hypoxemic respiratory failure. Patient continues to be intubated. 6. Altered mental status, presumably infectious encephalopathy. We will continue treating the underlying disease. Neurology has been consulted and there is a plan for electroencephalogram this morning. 7. Rhabdomyolysis. Will continue adequate hydration. 8. Pulmonary edema. The patient's chest x-ray this morning shows worsening of the pulmonary edema. ProBNP is slightly elevated and her central venous pressure was slightly elevated yesterday; however, this morning it is about 9, which is minimally elevated. We are going to continue monitoring. PLAN: So, in general, Ms. Marcial continues to be remarkably sick. We will continue with the current antibiotic coverage, adequate hydration, vent support. Replace all her electrolyte abnormality per protocol and transfuse and support her with blood products when needed. Prognosis poor. cc: Marco Antonio Cain MD MTDD
[2019-01-19] MEDS: SOLU-CORTEF IV SCH (12:57)
--- NOTE | 2019-01-19 13:37 | PULMONOLOGY PROGRESS NOTE ---
DATE: 01/19/2019 SUBJECTIVE: The patient remains poorly responsive. She is currently undergoing an EEG. She remains on Levophed for blood pressure support. OBJECTIVE: Vital Signs: Blood pressure 83/51, heart rate 108, respiratory rate 17, oxygen saturation 96%. Intake 4984, output 225. HEENT: Pupils appear equal but sluggish. She has mild icteric sclera. Endotracheal tube in position. Oropharynx appears dry. Neck: Is supple. Chest: Reveals coarse rhonchi bilaterally. Cardiac exam: S1, S2 with increased rate. Abdomen: Soft. Extremities: Are cool to the touch. LABORATORIES: White blood count 21.27, hemoglobin 7.5, platelet count 33,000. PT 32.1, INR 2.86. Arterial blood gas reveals pH 7.35, pCO2 of 40, PO2 of 67 with a lactate of 12.1. Sodium 145, potassium 2.5, chloride 100, bicarbonate 19, BUN 33, creatinine 2.4. Chest x-ray reveals consolidation at the left lung base. Microbiology reveals urine culture pending. Blood culture pending. No sputum culture evaluation pending. IMPRESSION: A 53-year-old with history of narcotic use, history of alcohol abuse with: 1. Acute hypoxemic respiratory failure. 2. Septic shock. 3. Acute renal failure. 4. Acute liver failure. 5. Protein calorie malnutrition. RECOMMENDATIONS: 1. Continue full ventilatory support. 2. Check a sputum for culture and sensitivity for the left lower lobe pneumonia. 3. Fluid bolus. 4. Agree with correction of coagulopathy. 5. Check a cortisol level. 6. Anticipate need for nutrition replacement in the near future. TIME SPENT CRITICAL CARE: 30+ minutes. cc: Clark Garcia MD
--- NOTE | 2019-01-19 13:46 | NEPHROLOGY PROGRESS NOTE ---
DATE: 01/19/2019 SUBJECTIVE: She remains sedated on the ventilator. OBJECTIVE: Vital Signs: Blood pressure 83/51, heart rate 108, respirations 17. Intake 5 L, output 300 mL, but only 100 mL urine output. General: Chronically ill-appearing, sedated, on the ventilator. Skin: Icteric. HEENT: Pupils are equal. Oropharynx is dry. Neck: Neck veins are not appreciated. Heart: Regular, with tachycardia and S4. Lungs: The lungs have equal breath sounds. No crackles appreciated. Abdomen: Soft. Decreased bowel sounds. Extremities: No edema, clubbing or cyanosis. IMPRESSION: Acute kidney injury. Low urine output. CVP only 9, however, blood pressure remains low. She has no acute indications for dialysis so we will continue watchful waiting. Her lactic acidosis is still severe but improving. Lactate today was 12 on the blood gas. Serum bicarbonate is 19, with anion gap of 26. Her hypokalemia has been addressed by the primary team. We will continue to observe. cc: Lefty Ceballos MD
--- NOTE | 2019-01-19 14:08 | EEG REPORT ---
DATE: 01/18/2019 COMMENT: This is a digitally recorded EEG done portably in the ICU on a 53-year -old patient with stupor. FINDINGS: The record is composed of abundant high amplitude slowing in the delta range at 3-4 hertz across the hemispheres, highest amplitude frontally. There is polymorphic and rhythmic theta at 4-6 hertz across the central background symmetrically. No sustained posterior dominant rhythm was identified. There was no variation to correlate with spontaneous drowsing or sleep. Photic stimulation did not significantly alter the record. No definite epileptiform discharge was identified. INTERPRETATION: Abnormal EEG because of generalized slowing. CORRELATION: This is indicative of a diffuse encephalopathy and is nonspecific. The absence of epileptiform discharge does not exclude the diagnosis of seizure, but there is nothing on this record to suggest subclinical seizure as the reason for her stupor. cc: MD MELODY Pang III
--- NOTE | 2019-01-19 14:15 | PROGRESS NOTE ---
DATE: 01/19/2019 LOCATION: ICU bed 2. Ms. Marcial has been more responsive today. Lab shows WBC down to 21,000, calcium down to 6.9, CK back up to 918. INR continues prolonged at 2.86 and ProTime 32.1 seconds. Her EEG showed generalized slowing, but no epileptiform discharge and no definite focal findings. Discussed at some length with cousin at the bedside. This may be the nearest relative. Cousin has visited with her in person and by text/phone. Cousin reports the patient stopped responding to her texts and phone calls about 2 weeks ago. Cousin went to visit and the patient did not come to the door. The patient's roommate reported that the patient was too ill to come to the door. Cousin presumes the patient has been ill and possibly getting worse since that visit 2 weeks ago. Cousin confirms history of multiple substance use over the years, not certain about recent ingestion. I do not have any new thought from Neurology standpoint today. EEG does not show evidence of subclinical seizure. I do not think we need further brain imaging now. Still might consider lumbar puncture when INR improves. IMPRESSION: Global encephalopathy. 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 There may be a baseline cognitive impairment syndrome which would predispose her to more dramatic and more protracted encephalopathy with any toxic or metabolic problem. There may have been substance ingestion at some point prior to admission, but all we have documented here was positive urine opiate screen on admission. She has been managed here with fentanyl drip. In light of her presumed opiate tolerance, I am not certain what to expect with the current fentanyl dose. No new suggestion from Neurology today. Thanks for asking us to see Ms. Marcial. cc: MD MELODY Pang III
[2019-01-19] MEDS ORDERED: TEFLARO 400 MG in NS 250 ML IV SCH (15:15)
--- NOTE | 2019-01-19 15:35 | ECHO REPORT ---
ORDER DATE: 01/18/2019 ECHOCARDIOGRAM: Elevated troponins. Sepsis. FINDINGS: 1. Right atrium is mildly enlarged at 4.7 cm. 2. Mild tricuspid regurgitation. RV systolic pressure 38. 3. Normal RV size and systolic function. 4. No significant pulmonic insufficiency. 5. Normal left atrial size at 3.4 cm. 6. No mitral valve prolapse. Mild mitral regurgitation. 7. Normal LV size, end-diastolic dimension of 3.7. Normal wall thicknesses, with a posterior and interventricular septal wall thickness of 1.1 cm each. Hyperdynamic LV systolic function with an estimated EF greater than 70%. 8. Aortic valve opens well. No evidence of stenosis or insufficiency. 9. Aorta appears normal in visualized segments. 10. There is a scant, relatively circumferential pericardial effusion with no evidence of tamponade. Suggestion of a pleural effusion. cc: MD Bing Colvin MD
[2019-01-19] MEDS: LEVAQUIN 250 MG/D5W 250 MG/50 ML IVPB IV SCH (16:04)
[2019-01-19] MEDS: TEFLARO 400 MG in NS 250 ML IV SCH (16:48)
[2019-01-19] MEDS: NEO-SYNEPHRINE 50 MG in NS 250 ML IV SCH (20:07)
--- NOTE | 2019-01-19 20:19 | INFECTIOUS DISEASE PROGRESS NO ---
DATE: 01/19/2019 PRESENT ILLNESS: Ms. Marcial has a pulmonary edema versus pneumonia more to the left lower lobe. There is also septic shock with acute renal failure and acute liver failure. There is also a worsening thrombocytopenia, with coagulopathy indicating disseminated intravascular coagulation. MEDICATIONS: She has most recently been receiving IV vancomycin per pharmacy dosing, IV Zosyn and IV cefepime all of which we will discontinue at this point. PHYSICAL EXAM: Vital Signs: Temperature is 97.9 degrees, pulse rate 108, respiratory rate 12, blood pressure 84/53, O2 saturation is 90% on the mechanical ventilator. HEENT : Atraumatic, normocephalic. Oral mucous membranes have some dry blood noted in edges of her mouth and membranes are dry. Conjunctivae are pale. ET tube is in place as well as NG to intermittent wall suction. Respiratory: Lung sounds have coarse rhonchi bilaterally. Cardiovascular: Heart rate and rhythm are regular and tachycardic, sinus tach on the monitor. Abdomen: Soft with hypoactive bowel sounds. Neurologic: She is sedated and tied down on mechanical ventilator. She will move extremities but not to command. Withdrawal to pain. LABORATORY AND X-RAY: Today her white count is 21.27, hemoglobin 7.5, platelet count 33,000, creatinine is 2.4, GFR 21. On a 30% FiO2 on the mechanical ventilator this morning her pH was 7.35, pCO2 40, PO2 67, HC03 22.4, lactate down to 12.1. Her sputum culture is pending. Urine culture has a preliminary report of no growth. Blood cultures have shown 1/2 coag-negative staph which is a contaminant. Chest x-ray today shows worsening pulmonary edema versus pneumonia particularly in the left lower lobe. ASSESSMENT AND PLAN: Ms. Marcial is being treated for left-sided pneumonia versus pulmonary edema. Her white count is coming down however, with the coagulopathy and thrombocytopenia, as well as her renal failure, we will discontinue the vancomycin, cefepime and Zosyn, which was discontinued earlier. At this point we will dose her based on her renal insufficiency using ceftaroline 400 mg IV every 12 hours and Levaquin 250 mg IV once daily. These plans have been discussed with and recommended by Dr. Hall. COMORBIDITIES: Include hepatitis C, coronary artery disease, asthma and history of stroke. Dictated by MACIEL Booth for Calvin Hall MD This chart was documented by, MACIEL Booth and accurately reflects the services performed, treatment plan and medical decisions as attested by the providers signature Calvin Hall MD. cc: Calvin Hall MD [facility]
--- NOTE | 2019-01-19 21:22 | CARDIOLOGY PROGRESS NOTE ---
DATE: 01/19/2019 SUBJECTIVE: Ms. Marcial remains on the ventilator. She is not responsive to physical stimuli. OBJECTIVE: She is afebrile. Heart rates are predominantly in the low 100s. Blood pressure 84/54. She continues on pressors. Generally she is in no acute distress. Cardiovascular: She is in a tachycardic and regular rhythm. She has no obvious murmurs. She has warm and well- perfused lower extremities with no edema. Her chest exam sounds clear with the exception of some mild rales on the left, from the anterior position, in the lower lung field. Her abdomen is soft, nontender, nondistended. She has no obvious organomegaly. LABORATORY DATA: Her white count is 21.2 which is improved, hematocrit 23.8 which has dropped, and her platelet count is 33,000 which is lower as well. She continues to have a left shift. Her INR is 2.8, which is improved. Sodium 145, potassium is 2.5, BUN 33, creatinine 2.4. Her proBNP is 19,232. Her lactate level is 12.1. ASSESSMENT: Ms. Marcial is a 53-year-old female who presented with sepsis. She has developed respiratory failure and acute kidney injury. She had an incidental troponin elevation. PLAN: The patient had a normal echocardiogram from the standpoint of her ejection fraction, very vigorous. She has a very scant pericardial effusion that has no evidence of tamponade. In addition, pleural effusion was noted. Her troponin elevation is a supply/demand mismatch secondary to her significant comorbidities, resulting in a mild troponin elevation. Her proBNP is not indicative of congestive heart failure in this situation. At this point, I do not have any further cardiac-specific recommendations other than continued supportive care as well as continued antibiotic coverage. Please contact us if we can be of further assistance with this patient. cc: Dl Laguna MD
[2019-01-19] MEDS ORDERED: NS 500 ML IV ONE (22:02)
[2019-01-19 22:10] LABS: BASO% 0.4 % (0.0-0.8); EOS# 0.04 X1000 (0.0-0.7); EOS% 0.2 % (0.0-10.0); HEMATOCRIT 23.3 % (37.0-47.0); HEMOGLOBIN 7.1 g/dL (12.0-16.0); IMM GRAN# 1.95 X1000 (0.0-0.04); IMM GRAN% 7.3 % (0.0-0.5); LYMPH% 7.5 % (20.5-51.1); MCH 34.8 PG (27-31); MCHC 30.5 g/dL (33-37); MCV 114.2 FL (81-99); MONO% 4.1 % (1.7-9.3); MPV 11.8 FL (7.4-10.4); NEUT# 21.38 X1000 (1.4-6.5); NEUT% 80.5 % (42.2-75.2); RBC 2.04 XMIL (4.2-5.4); RDW 16.8 % (11.5-14.5); WBC 26.57 X1000 (4.8-10.8)
[2019-01-19 22:13] LABS: PLT 30 X1000 (130-400)
[2019-01-19 22:18] LABS: INR 3.51; PROTIME 37.6 Seconds (11.0-16.0)
[2019-01-19 22:19] LABS: PTT 41.9 Seconds (22.3-41.8)
[2019-01-19] MEDS: PITRESSIN 40 UNIT in NS 100 ML IV SCH (22:19)
[2019-01-19] MEDS ORDERED: SOLU-CORTEF IV ONE (22:42)
[2019-01-19] MEDS ORDERED: CALCIUM GLUCONATE 1 GM in NS 50 ML IV ONE (22:43)
[2019-01-19 22:48] LABS: ALBUMIN 2.1 g/dL (3.5-5.0); CALCIUM 6.2 mg/dL (8.8-10.2); CREATININE 2.3 mg/dL (0.5-0.9); POTASSIUM 2.8 mmol/L (3.5-5.1)
[2019-01-20] MEDS: NEO-SYNEPHRINE 50 MG in NS 250 ML IV SCH (00:09)
[2019-01-20] MEDS ORDERED: NS 500 ML ONE (00:37)
[2019-01-20] MEDS: POTASSIUM CHLORIDE 20 MEQ/SWI 20 MEQ/100 ML IVPB IV SCH ×2 (00:54→03:31)
[2019-01-20] MEDS: SOLU-CORTEF IV SCH ×2 (00:54→11:22)
[2019-01-20] MEDS: LEVOPHED 8 MG in D5 1/2 NS 250 ML IV SCH ×4 (01:00→15:40)
[2019-01-20] MEDS ORDERED: VANCOMYCIN 1,150 MG in NS 250 ML IV SCH (05:00)
[2019-01-20] MEDS: SODIUM BICARBONATE 8.4% 100 MEQ in D5W 1,000 ML IV SCH ×2 (05:08→15:35)
[2019-01-20] MEDS: TEFLARO 400 MG in NS 250 ML IV SCH (05:18)
[2019-01-20 05:30] LABS: INR 2.51; PROTIME 28.9 Seconds (11.0-16.0)
[2019-01-20 05:32] LABS: BASO# 0.17 X1000 (0.0-0.2); BASO% 0.6 % (0.0-0.8); EOS# 0.01 X1000 (0.0-0.7); HEMATOCRIT 28.4 % (37.0-47.0); HEMOGLOBIN 8.6 g/dL (12.0-16.0); IMM GRAN# 1.81 X1000 (0.0-0.04); IMM GRAN% 6.3 % (0.0-0.5); LYMPH# 2.11 X1000 (1.2-3.4); LYMPH% 7.3 % (20.5-51.1); MCH 32.5 PG (27-31); MCHC 30.3 g/dL (33-37); MCV 107.2 FL (81-99); MONO# 1.59 X1000 (0.11-0.59); MONO% 5.5 % (1.7-9.3); MPV 12.2 FL (7.4-10.4); NEUT# 23.21 X1000 (1.4-6.5); NEUT% 80.3 % (42.2-75.2); RBC 2.65 XMIL (4.2-5.4); RDW 17.5 % (11.5-14.5)
[2019-01-20 05:34] LABS: PLT 26 X1000 (130-400)
[2019-01-20 05:45] LABS: MAGNESIUM 1.9 mg/dL (1.5-2.7); PHOSPHORUS 3.6 mg/dL (2.7-4.5)
[2019-01-20 05:51] LABS: ALLEN TEST YES; BE -15.6 mmoll (-3.0-3.0); BLOOD TYPE ARTERIAL; HCO3-(ACT) 12.3 mmoll (20.0-26.0); METHB 0.6 % (0.0-1.5); O2(CT) 8.7 mL/dL (15.0-23.0); PCO2(98.6) 44 mmHg (35-45); SAMPLE BLOOD; SRATE 12 BPM; THB 8.7 g/dL (11.5-17.4); TVOL 550 mL
[2019-01-20 05:53] LABS: MODALITY VENTILATOR
[2019-01-20 05:54] LABS: LACTATE > 20.00 mmoll (0.44-2.22); PO2(98.6) 40 mmHg (60-100); pH(98.6) 7.09 (7.35-7.45)
[2019-01-20 05:55] LABS: O2HB 71.2 % (95.0-99.0); SAO2 73.2 % (95.0-100.0)
[2019-01-20] MEDS: FENTANYL 1,000 MICROGM in NS 80 ML IV SCH (06:03)
[2019-01-20 06:49] LABS: ALB/GLOB RATIO 0.9; ALBUMIN 2.4 g/dL (3.5-5.0); CREATININE 2.6 mg/dL (0.5-0.9); POTASSIUM 3.4 mmol/L (3.5-5.1); TOTAL BILIRUBIN 6.19 mg/dL (0.20-1.00); TOTAL PROTEIN 5.2 g/dL (6.3-8.3)
--- NOTE | 2019-01-20 06:59 | Diag Imaging Result Doc PS360 ---
EXAM: CHEST-1 VIEW HISTORY: SOB TECHNIQUE: Portable chest single view COMPARISON: 01/19/2020 FINDINGS: No change in the endotracheal tube, nasogastric tube, or right jugular line. There are now diffuse bilateral infiltrates. These are more prominent than on the prior study. Infiltrates are most pronounced in the left lung base. There is a small left pleural effusion. IMPRESSION: Interval worsening. Electronically signed by Tavares Dobbs 01/20/2019 6:57 AM
[2019-01-20 07:23] LABS: CALCIUM 6.2 mg/dL (8.8-10.2)
[2019-01-20] MEDS: NEO-SYNEPHRINE 100 MG in NS 250 ML IV SCH ×2 (08:14→13:30)
[2019-01-20] MEDS ORDERED: M.V.I.-12 10 ML, FOLIC ACID 1 MG, MAGNESIUM SULFATE 1 GM, THIAMINE 100 MG in NS 1,000 ML IV SCH (09:00)
--- NOTE | 2019-01-20 10:14 | PROGRESS NOTE ---
DATE: 01/20/2019 SUBJECTIVE: This morning, Ms. Marcial looks remarkably worse than yesterday. I understand she became extremely hypotensive and hypoxemic yesterday and had to go up on her ventilator on her FiO2 to 100% and she was started on 2 other pressors, so she is currently on 3 pressors and had to be fluid resuscitated as well as given her PRBCs and FFP. OBJECTIVE: Vital signs: This morning her blood pressure is about 86/57, pulse is 109, respirations 19, temperature is 98.1 degrees. General: Ms. Marcial is a 53-year-old female. She is in bed. She is currently intubated and she is still breathing some over the ventilator, but she seems to be having agonal breathing. HEENT: Mucosa is pink. She is remarkably mottled on the entire skin. Chest: Air entry is bilaterally reduced. There are transmitted sounds from the ventilator. There are also crackles in both lung ordonez. Cardiovascular: Regular rate and rhythm. Did not hear any murmurs, no rubs, no gallops. Gastrointestinal: Abdomen is soft. Bowel sounds are hypoactive. There is some surgical scar on the anterior abdominal wall. Extremities: No pedal edema. Central nervous system: Patient is unresponsive even to extreme painful stimulation. The pupils are midsize and very sluggishly reactive. There was no corneal reflex and patient was not tracking with head turning. There was no gag reflex either. Patient's intake and output: Urine output was only 225 in 48 hours. Patient is currently positive balance of 13,000. DIAGNOSTIC STUDIES: 1. A chest x-ray this morning shows interval infiltrate, most pronounced in the left lung base. There is a small left pleural effusion. There is interval worsening. 2. An echocardiogram official report shows ejection fraction of 70%. MICROBIOLOGY DATA: So far, blood cultures, 1/ was coag-negative Staph which we think is probably contaminant. Urine was negative, and sputum shows 3+ gram-positive cocci and 4+ white. Still pending the final culture on that. LABORATORY DATA: WBC is 28.90, hemoglobin is 8.6, platelet count is down to 26,000. Chemistry is also reviewed. Creatinine is up to 2.6, BUN is 32. The patient's bicarb is 13, which is worse than yesterday. Potassium is up to 3.4, it was 2.5 yesterday. INR is 2.51. Patient's fibrinogen was 200. ASSESSMENT: 1. Refractory septic shock. The patient continues to be intubated on 3 different types of pressors (Levophed, phenylephrine and vasopressin, almost all of them maxed out). 2. Severe worsening thrombocytopenia with elevated INR and low fibrinogen consistent with disseminated intravascular coagulation. Patient has been getting p.r.n. transfusion. 3. Severe lactic acidosis secondary to septic shock. 4. Oliguric acute kidney injury likely due to acute tubular necrosis from septic shock. 5. Comatose. Patient mentation has remarkably worsened over the 24 hours. She is currently not showing any signs of cortical activity. She does not have gag reflex either, and I did not get any corneal reflex. She does have very sluggish pupillary reflex and she is breathing some over the ventilator. Clearly, she does have some brainstem activity; however, I think she is losing it now. 6. Pulmonary edema secondary to congestive heart failure with preserved ejection fraction, from septic shock. 7. Acute hypoxemic respiratory failure. Patient is intubated, currently on 100% FiO2. 8. Rhabdomyolysis. 9. transaminitis likely due to acute ischemic liver injury. PLAN: In general, Ms. Marcial's condition has remarkably gotten worse overnight. She is currently in multiorgan failure with extremely poor prognosis. Lactic acid is over 20, severely acidotic, on 100% FiO2 on the ventilator and some worsening neurological findings. I have communicated this to her stepmother (Ms Michelle Marcial) over the phone at [phone]. I have also reached out to her cousin, Ms Cook. I also explained to them about the prognostic nature of her current medical status. Both of them are coming to the hospital in the next 30 to 1 hour and we will be able to discuss her status and go from there. TIME SPENT: Critical time spent is 45 minutes. cc: Marco Antonio Cain MD
[2019-01-20] MEDS: PROTONIX IV SCH (11:22)
[2019-01-20] MEDS: NS 500 ML IV SCH (11:53)
--- NOTE | 2019-01-20 12:39 | PROGRESS NOTE ---
DATE: 01/20/2019 I spoke this morning extensively with the stepmother, and another female family member, I think is the mother of the niece. All 3 of them were at the bedside. We went over Ms. Marcial's hospital course and the change of events and how she is now extremely sick with multiorgan failure. I did discuss the poor prognostic nature of her current medical status. I also notified them that Ms. Marcial is being seen by multiple subspecialties including Nephrology, Pulmonary Medicine, Heme-Onc and Infectious Disease and that at this point Ms. Marcial is on maximum critical care support. Not withstanding that, she does not seems to be responding and her condition continues to be remarkably poor. After our discussion the family opted to not escalate care and that if Ms. Aniket Culvers condition should decline any further to the point whereby heart should stop, they do not want any CPR. They do not want any chest compression. They do not want any shock. They are okay in changing Ms. Marcial's resuscitation status to DNR level 1 with no escalation of current care. I have notified the attending nurse and I have changed Ms Marcial's current resuscitation status in the EMR to reflect my discussion with her family. cc: Marco Antonio Cain MD MTDD
[2019-01-20] MEDS: PITRESSIN 40 UNIT in NS 100 ML IV SCH (14:16)
--- NOTE | 2019-01-20 15:05 | NEPHROLOGY PROGRESS NOTE ---
DATE: 01/20/2019 SUBJECTIVE: Overnight she has been progressively worse. She is now requiring 3 vasopressor agents and her obstination is worsening considerably. Lactic acidosis is worsening as well. OBJECTIVE: Vital Signs: Blood pressure 86/57, heart rate 109, respiration 19, afebrile. Intake 7.6 liters, output 200 mL. She is net positive 13 L according to the chart. CVP: Has varied widely over the last 24 hours from 6 to 20. General: Unresponsive ill-appearing female with jaundice. Eyes: Conjunctivae are pale. Pupils are equal. Heart: Regular and tachycardic. Lungs: Have diffuse crackles. Abdomen: Has diminished bowel sounds. Extremities: Have 3+ edema. IMPRESSION: Acute kidney injury in the context of shock and pneumonia, respiratory failure. She has worsening anion gap acidosis secondary to lactic acid. Oliguric. Her only criteria for dialysis today would be acidosis and volume overload. However, her acidosis is primarily from lactate, and this would not respond well to dialysis. Her blood pressure would limit ultrafiltration, so achieving any significant improvement in that area is unlikely. However, if the team feels that dialysis would improve her potential survival, then we will be glad to offer that service. Overall, very poor prognosis. Likely to within the next 24 hours. cc: Lefty Ceballos MD
[2019-01-20 15:30] VITALS: BP 78/49
[2019-01-20] MEDS: LEVAQUIN 250 MG/D5W 250 MG/50 ML IVPB IV SCH (15:35)
--- NOTE | 2019-01-20 20:39 | PULMONOLOGY PROGRESS NOTE ---
DATE: 01/20/2019 INTERIM HISTORY: The patient's oxygen requirements have continued to climb. She has had ongoing hypotension which has not improved with addition of 2 more vasopressors. OBJECTIVE: Urine output is 0. Blood pressure is undetected. The patient is afebrile. HEENT: Eyes are icteric. Head is cyanotic. Oropharynx appears clear. Neck is supple. Chest reveals diffuse rhonchi bilaterally. Cardiac exam: S1, S2 on the monitor, but pulse could be palpated. Abdomen is mildly distended. Extremities are cool to the touch. LABORATORY DATA: Sodium 139, potassium 3.4, chloride 93, bicarbonate 13, anion gap 33, BUN 32, creatinine 2.6, bilirubin 6.1, AST 1039, ALT 243. Arterial blood gas reveals a pH of 7.09, pCO2 of 44, pO2 of 40 on 70% FIO2, with a lactate greater than 70. DIAGNOSTIC DATA: Chest x-ray reveals significant worsening of bilateral infiltrates. IMPRESSION: A 53-year-old with history of alcohol use, history of narcotic use , who has: 1. Acute hypoxemic respiratory failure. 2. Progressive and ongoing shock. 3. Acute renal failure. 4. Acute liver failure. 5. Protein-calorie malnutrition. DISCUSSION: The patient is admitted to the hospital with organ failure. She has had progressive organ failure and now has multiorgan dysfunction syndrome. She has intractable lactic acid with intractable shock. Family is at the bedside and is aware that she probably will not survive this hospital stay. RECOMMENDATIONS: 1. Continue ventilatory support. 2. Continue current antibiotics. 3. Continue steroids for adrenal insufficiency. 4. Prognosis is extremely poor. She is unlikely to survive. Time spent in critical care management: 30+ minutes cc: Clark Garcia MD [facility]
--- NOTE | 2019-01-21 22:10 | DISCHARGE SUMMARY ---
ADMISSION DATE: 01/18/2019 DISCHARGE DATE: 01/20/2019 DATE OF : 01/20/2019. TIME OF : 17:44 p.m. The patient pronounced by ICU 2 nurses. DIAGNOSES AT THE TIME OF : 1. Refractory septic shock. 2. Disseminated intravascular coagulation. 3. Severe lactic acidosis secondary to septic shock. 4. Oliguric acute kidney injury secondary to acute tubular necrosis from septic shock. 5. Severe global encephalopathy. 6. Pulmonary edema. 7. Acute hypoxemic respiratory failure. 8. Rhabdomyolysis. 9. Ischemic liver injury. 10. Multiorgan failure. 11. Methicillin-resistant Staphylococcus aureus pneumonia. 12. Citrobacter farmeri urinary tract infection. CONSULTATIONS DURING THIS ADMISSION: 1. Infectious Disease was consulted, the patient was seen by Dr. Hall. 2. Neurology was consulted, the patient was seen by Dr. Jaime. 3. Pulmonary Medicine was consulted, the patient was seen by Dr. David followed up by Dr. Garcia. 4. Nephrology was consulted, the patient was seen by Dr. Rothman. INVASIVE PROCEDURE DONE DURING THIS ADMISSION: None. IMAGING STUDIES OF SIGNIFICANCE: 1. A chest x-ray was done which showed no evidence of acute disease. 2. A CT scan of the head showed no obvious intracranial pathology. 3. A repeat chest x-ray did show adequate intubation. There was apparent infiltrate at superior lateral left upper lobe. 4. A CT scan of the abdomen and pelvis showed apparent relatively generalized enterocolitis. There is some possible thickening of the gastric wall suspicious for gastritis. 5. Multiple chest x-rays were done subsequently. 6. EEG was also done on 01/18/2019, which showed diffuse encephalopathy, nonspecific, but no epileptiform discharges. PRESENTING COMPLAINT: Unresponsiveness. HISTORY OF PRESENTING COMPLAINT: Ms. Marcial is a 53-year-old female who has multiple comorbidities including previous CVA, coronary artery disease, asthma, apparently lives by herself but has a girlfriend. We understand the girlfriend last saw her 31 hours prior to coming to the emergency room. After the girlfriend did not hear from her she called her apartment, she went to her apartment to check on her and found her lying unresponsive in the bathtub. The patient was brought to the emergency department where she was intubated and admitted to the ICU. Upon presenting, Ms. Marcial was found to be severely acidotic with a bicarbonate of 5, anion gap was 50, abnormal renal function as well as liver function. HOSPITAL COURSE: Ms. Marcial was in the ICU, intubated, was on full critical care support, was seen by multiple subspecialties named above. Initially it was hard to get any family member to discuss Ms. Marcial's situation; however, we were able to get in touch with her stepmother as well as her niece. Eventually multiple discussions were held with the family by different providers. Ms. Marcial continued to get worse. Her clinical picture declined very rapidly and eventually the family members decided to make her DNR level 1. Unfortunately Ms. Marcial could not survive her disease and she on the evening of 01/20/2019 at 17:44. She was pronounced by 2 ICU nurses and family members were notified. cc: Marco Antonio Cain MD MTDD
--- NOTE | 2019-01-24 22:39 | ED EKG INTERP ---
This chart was entered by Unruly Iverson Scribe, acting as scribe for Ulices Lehman MD. EKG Interpretation - EKG Time of EKG reading by physician:: 00:13 EKG Read and Signed by:: Ulices Lehman EKG Interpretation (*Must complete 3 of following elements*): Abnormal Rate: 83 Rhythm: NSR Comments: ST and T wave abnormality, Prolonged QT Attestation - Physician/ XAVIER Attestation Patient care was provided by Advanced Practice Provider:: No The physician spent face to face time with patient:: Yes Advanced Practice Provider documentation review:: Supervising physician onsite and consulted in the evaluation and care of this patient. The physician did have a face to face encounter with the patient. This chart was documented by the indicated scribe, (Unruly Iverson Scribe) and accurately reflects the services I performed and decisions made by me, Ulices Lehman MD, as attested by the provider's signature.
== END 2019-01-20 17:44 | disposition expired | DRG 871 ==
LOC: SUPCPDRO → ED 18:38 → ICU 01-18 00:22 → SUATTDRO 01-18 00:22
PROVIDERS: ATTEND Internal Medicine
CPT/HCPCS: 31500; 36430; 51702; 70450; 71010; 71045; 74176; 80048; 80053; 80069; 80101; 80196; 80202; 80301; 80307; 80320; 80324; 80329; 80345; 80346; 80353; 80358; 80361; 80365; 81001; 82003; 82040; 82055; 82533; 82550; 82553; 82570; 82693; 82805; 82948; 83605; 83735; 83880; 83930; 83992; 84100; 84300; 84443; 84484; 84540; 85025; 85220; 85230; 85384; 85610; 85730; 86850; 86900; 86901; 86920; 87040; 87070; 87077; 87088; 87186; 87205; 93005; 93010; 93306; 94003; 94761; 95816; 96365; 96366; 96367; 96368; 96375; 99285; 99291; C8929; C9113; G0431; G0434; G0479; G0480; G6038; G6039; G6040; J0610; J0692; J0712; J1720; J1956; J2310; J2370; J2543; J2997; J3010; J3370; J3430; J3480; J7030; J7040; J7050; J7070; J7120; P9012; P9016; P9017; Q9957; S0164; XXXXX